=== PATIENT | male | born 1965 ===

== ENCOUNTER 2021-12-11 13:18 | Emergency (ER) | payer OTHER ==
[~2021-12-11] VITALS: Ht 182.9 cm; Wt 90.3 kg
[2021-12-11 14:22] VITALS: BP 188/113
== END 2021-12-11 14:25 | disposition left against medical advice (07) ==
LOC: ER 13:18
DX: U07.1 COVID-19 (principal); Z53.29 Procedure and treatment not carried out because of patient's decision for other reasons